=== PATIENT | male | born 1985 | race Caucasian/White ===

== ENCOUNTER 2018-12-05 21:19 | Emergency (ER) | payer SELFPAY ==
[~2018-12-05] VITALS: Ht 177.8 cm; Wt 81.6 kg
[2018-12-05] MEDS ORDERED: NKM (21:31)
[2018-12-05 21:35] VITALS: BP 131/90
[2018-12-05] MEDS ORDERED: Bactrim-DS 1 tab ORAL ONE (21:45)
[2018-12-05] MEDS ORDERED: Cephalexin 500mg cap ORAL ONE (21:45)
--- NOTE | 2018-12-05 21:45 | NUR ---
ED Nurse Note: pt walked in c/o lesion on anterior neck, pt states there was a zit with ingrown hair and was touching it and it has gotten bigger x1 wk. repors pain. Noted abscess [id number] with induration 1cm, redness and tenderness. will cont monitor. airway intact, resp even and unlabored on RA.
[2018-12-05] MEDS ORDERED: CEPHALEXIN500 MG ORAL (21:51)
[2018-12-05] MEDS ORDERED: BACTRIM DS TAB1 EAC1 ORAL (21:51)
[2018-12-05 22:00] VITALS: BP 128/87
--- NOTE | 2018-12-05 22:01 | NUR ---
ED Nurse Note: pt cleared to be d/c per ERMD, pt discharge/aftercare instruction provided w/ prescription, list of places to make appoint and follow up given, pt education done via discussion and handout, pt advised return to ed if sx worsen or new sx develop, pt verbalized understanding and agrees with plan, vss, ambulatory w/ steady gait, all belongings left w/ pt. resp even and unlabored on RA, airway intact, wristand removed.
--- NOTE | 2018-12-05 22:18 | Emergency Room Report ---
History of Present Illness General Chief Complaint: Skin Rash/Abscess Source: Patient Present Illness HPI 33-year-old male presents ED for evaluation. Patient states that he has a redness and rash on his neck. Started one week ago as a pimple but that he tried to pop it and it got progressively worse. There is no erythema and induration to the anterior neck. Denies fevers or chills. Pain is dull, 5 out of 10, nonradiating. Denies any discharge. Denies any neck stiffness. No other aggravating relieving factors. Denies any other associated symptoms Allergies: Coded Allergies: No Known Allergies (Unverified , 12/05/18) Patient History Past Medical History: none Past Surgical History: none Pertinent Family History: none Social History: Denies: smoking, alcohol use, drug use Immunizations: UTD Reviewed Nursing Documentation: PMH: Agreed; PSxH: Agreed Nursing Documentation-PMH Past Medical History: No Stated History Review of Systems All Other Systems: negative except mentioned in HPI Physical Exam Vital Signs Date Time Temp Pulse Resp B/P (MAP) Pulse Ox O2 Delivery O2 Flow Rate FiO2 12/05/18 21:27 98.8 85 16 131/90 99 Room Air Sp02 EP Interpretation: reviewed, normal General Appearance: no apparent distress, alert, GCS 15, non-toxic Head: normocephalic Eyes: bilateral eye normal inspection, bilateral eye PERRL ENT: hearing grossly normal, normal pharynx, no angioedema, normal voice Neck: full range of motion, supple/symm/no masses, other - induration erythema to anterior neck over thyroid. no fluctuance or discharge Respiratory: chest non-tender, lungs clear, normal breath sounds, speaking full sentences Cardiovascular #1: regular rate, rhythm, no edema Gastrointestinal: normal inspection Rectal: deferred Genitourinary: no CVA tenderness Musculoskeletal: normal inspection Neurologic: alert, oriented x3, responsive, motor strength/tone normal, sensory intact, speech normal Psychiatric: normal inspection Skin: normal inspection Lymphatic: normal inspection Medical Decision Making Diagnostic Impression: Primary Impression: Cellulitis of neck ER Course Hospital Course 33-year-old male presents to ED with redness, pain to neck Differential diagnoses include: Cellulitis, dermatitis, insect bite, abscess Clinical course Patient placed on stretcher. After initial history, physical exam reveals a male in no acute distress. On exam there is a site for mild erythema and induration to the anterior neck, just over thyroid. There is no fluctuance. There is no tenderness. no nuchal rigidity. There is no tongue swelling, no stridor, no signs of impending airway. Patient is nontoxic appearing, afebrile. No clinical findings suggestive of thyroid involvement. Discussed findings with patient. We'll discharge with antibiotics. Given Keflex and Bactrim here. Safe for discharge with close outpatient follow-up. We'll provide referrals Diagnosis - cellulitis of neck stable and discharged to home with prescription for bactrim, Keflex. Instructed to followup with PMD. Instructed return to ED if symptoms recur or worsen Last Vital Signs Date Time Temp Pulse Resp B/P (MAP) Pulse Ox O2 Delivery O2 Flow Rate FiO2 12/05/18 22:00 98.8 82 16 128/87 99 Room Air Status: improved Disposition: HOME, SELF-CARE Condition: Stable Scripts Trimethoprim/Sulfamethoxazole 160/800* (BACTRIM DS TABLET*) 1 Each Tablet 1 TAB ORAL Q12H, #14 TAB 0 Refills Prov: Napoleon Cardona MD 12/05/18 Cephalexin* (KEFLEX*) 500 Mg Capsule 500 MG ORAL EVERY 6 HOURS for 7 Days, CAP Prov: Napoleon Cardona MD 12/05/18 Referrals: [facility] Patient Instructions: Cellulitis, [id number] Napoleon Cardona MD Dec 05, 2018 22:17
== END 2018-12-05 22:00 | disposition home or self-care (01) ==
LOC: EMR 21:46
DX: L03.221 Cellulitis of neck (principal)
CPT/HCPCS: 99282